=== PATIENT | male | born 1970 | race Caucasian/White ===

== ENCOUNTER → 2021-02-20 | Outpatient (CLI) | payer OTHER ==
[~2021-02-20] MED LIST: AMIT150T PO; ATOR40TA78 PO; CHOL10003 PO; ENAL20TA9 PO; INSU100C SQ-INSULIN; INSU300I SC
[2021-02-20 13:03] LABS: ALBUMIN 3.9 g/dL (3.4-5.0); ANION GAP 7 mmol/L (5-15); CALCIUM 9.1 mg/dL (8.5-10.1); CHLORIDE 103 mmol/L (98-107)
[2021-02-20 13:13] LABS: ALANINE AMINOTRANSFERASE 45 U/L (12-78); ALKALINE PHOSPHATASE 110 U/L (45-117); BILIRUBIN,TOTAL 0.7 mg/dL (0.2-1.0); CREATININE 1.13 mg/dL (0.7-1.3); TOTAL PROTEIN 8.1 g/dL (6.4-8.2)
== END | disposition home or self-care (01) ==
LOC: STAR 11:56
PROVIDERS: ATTEND Orthopaedic Surgery Foot and Ankle Surgery
DX: Z01.818 Encounter for other preprocedural examination (principal); Z20.822 Contact with and (suspected) exposure to COVID-19
CPT/HCPCS: 36415; 80053; 93005; U0003; U0005

== ENCOUNTER 2021-02-24 07:21 | Day surgery (SDC) | payer OTHER ==
[~2021-02-24] VITALS: Ht 188 cm; Wt 114.0 kg
[~2021-02-24 07:21] MED LIST changes: +BUPIVACAINE/PF 0.5% ONE; +LIDOCAINE/PF 1%, 30ML ONE
[2021-02-24 08:06] VITALS: BP 121/78
[2021-02-24] MEDS ORDERED: CHLORHEXIDINE 15 ML UDC ONE (08:10)
[2021-02-24] MEDS ORDERED: LACTATED RINGERS 1,000 ML IV SCH (08:30)
[2021-02-24] MEDS ORDERED: CHLORHEXIDINE 15 ML UDC PO ONE (08:30)
[2021-02-24] MEDS ORDERED: ACETAMINOPHEN 500 MG TABLET ONE (08:39)
[2021-02-24] MEDS ORDERED: MIDAZOLAM 1 MG/ML, 2ML ONE (08:40)
[2021-02-24] MEDS ORDERED: FENTANYL PF 100 MCG/2ML ONE (08:40)
[2021-02-24] MEDS ORDERED: ACETAMINOPHEN 500 MG TABLET PO ONE (09:00)
[2021-02-24] MEDS ORDERED: ONDANSETRON 2MG/ML, 2ML IVPush PRN (11:00)
[2021-02-24] MEDS ORDERED: MEPERIDINE/PF 25MG/0.5ML IVPush PRN (11:00)
[2021-02-24] MEDS ORDERED: OXYcodone 5 MG/5 ML ORAL.SOL UDC PO PRN (11:00)
[2021-02-24] MEDS ORDERED: LORazepam 2 MG/ML, 1ML IVPush PRN (11:00)
[2021-02-24] MEDS ORDERED: LABETALOL 5MG/ML, 20ML IV PRN (11:00)
[2021-02-24] MEDS ORDERED: FENTANYL PF 100 MCG/2ML IV PRN (11:00)
[2021-02-24] MEDS ORDERED: HYDROmorphone 1 MG/ML, 1ML INJ IVPush PRN (11:00)
[2021-02-24] MEDS ORDERED: hydrALAzine 20 MG/ML, 1ML IV PRN (11:00)
[2021-02-24] MEDS ORDERED: PROMETHAZINE 25 MG/ML, 1ML IVPush PRN (11:00)
[2021-02-24] MEDS ORDERED: PROMETHAZINE 25 MG SUPP PR PRN (11:00)
[2021-02-24] MEDS ORDERED: VANCOMYCIN 500 MG ONE (11:13)
[2021-02-24] MEDS ORDERED: DEXAMETHASONE 4 MG/ML, 5ML ONE (11:26)
[2021-02-24] MEDS ORDERED: CEFAZOLIN 1,000 MG ONE (11:26)
[2021-02-24] MEDS ORDERED: ONDANSETRON 2MG/ML, 2ML ONE (11:26)
[2021-02-24] MEDS ORDERED: PROPOFOL 10 MG/ML, 20ML ONE (11:26)
== END 2021-02-24 13:00 | disposition home or self-care (01) ==
LOC: OUT 07:21
PROVIDERS: ATTEND Orthopaedic Surgery Foot and Ankle Surgery
DX: Q66.71 Congenital pes cavus, right foot (principal); Q66.72 Congenital pes cavus, left foot; E10.621 Type 1 diabetes mellitus with foot ulcer; L97.418 Non-pressure chronic ulcer of right heel and midfoot with other specified severity; M79.662 Pain in left lower leg; M25.572 Pain in left ankle and joints of left foot; I10 Essential (primary) hypertension; F17.210 Nicotine dependence, cigarettes, uncomplicated; E10.9 Type 1 diabetes mellitus without complications; Z79.899 Other long term (current) drug therapy; Z98.890 Other specified postprocedural states; Z72.89 Other problems related to lifestyle
CPT/HCPCS: 27685; 27691; 28306; 64445; 64447; 73620; 82962; 87070; 87075; 87077; 87186; 87205; C1713; C5275; J0690; J1100; J2250; J2405; J2704; J3010; J3370; J7120; Q4100; 76000